=== PATIENT | female | born 1970 | race Caucasian/White ===

== ENCOUNTER 2019-01-02 07:19 | Outpatient (CLI) | payer MEDICARE, MEDICAID, SELFPAY ==
[2019-01-02 08:02] LABS: Kit/Specimen SENT
== END 2019-01-02 07:39 ==
PROVIDERS: PCP Family Medicine
DX: A67 Pinta [carate] (principal)
CPT/HCPCS: 36415

== ENCOUNTER 2019-03-15 14:20 | Outpatient (CLI) | payer MEDICARE, MEDICAID, SELFPAY ==
[2019-03-19 10:36] LABS: EBV EA IgG Positive (Negative)
[2019-03-19 15:06] LABS: EBNA IgG Positive (Negative); EBV Interpretation (See Note); VCA IgG Positive (Negative); VCA IgM Negative (Negative)
== END 2019-03-15 14:40 ==
PROVIDERS: PCP Family Medicine
DX: R53.83 Other fatigue (principal); A69.20 Lyme disease, unspecified; A44.9 Bartonellosis, unspecified
CPT/HCPCS: 36415; 86663; 86664; 86665

== ENCOUNTER 2022-09-13 23:29 | Emergency (ER) | payer MEDICARE, MEDICAID, SELFPAY ==
[2022-09-13 23:33] VITALS: BP 147/70; PULSE 96; RESP 20; TEMP 36.7; O2SAT 98
--- NOTE | 2022-09-13 23:35 | ED.GENADUL_ITS ---
Discharge Plan Discharge Details Chief Complaint: [facility]Medical Primary Care Provider: Marcelo Metz ED Provider: Marcelo Gannon Home Meds and New Rx's Prescriptions: No Action lorazepam [Ativan] 1 mg tablet 1 mg PO DAILY PRN cyclobenzaprine 10 mg tablet 10 mg PO DAILY PRN lithium oratate 2 mg PO .3x a week albuterol sulfate [ProAir HFA] 90 mcg/actuation HFA aerosol inhaler 2 puff inhalation QID trazodone 150 mg tablet 150 mg PO QHS PRN olanzapine [Zyprexa] 10 mg tablet 10 mg PO QHS Medical Decision Making This is an overall very well-appearing normothermic and not tachycardic 52-year-old female with twitching and restless legs concerning for multiple etiologies. I considered dystonic reaction however the patient has no escalating doses of her home fluoxetine. Has had no torticollar reaction nor any buccolingual reactions. There is no oculogyric crisis on exam nor any opisthotonic nor any trismus. Her presentation is not consistent with Sydenham's chorea and she had no recent fevers. She had no led pipe rigidity nor any altered mental status to suggest neuroleptic malignant syndrome. She was not altered nor has she had any autonomic instability to suggest serotonin syndrome. It is certainly possible that she she may progress to develop serotonin syndrome and so I advised discontinuing her home fluoxetine. No recent infected wounds to suggest tetanus. 5 out of 5 bilateral upper and lower extremity strength so not suspicious for CVA. Patient had no history of dementia.Patient denies any visual changes so my suspicion was exceedingly low for new onset MS particularly given the patient's age. She reported that she did take olanzapine today so it is certainly possible that she could have had an extrapyramidal reaction such as akathisia. She has no history of IV drug use to suggest spinal epidural abscess. No recent spinal manipulation to suggest increased risk for spinal epidural hematoma. No acute urinary retention to suggest cauda equina. Bilateral lower extremities warm and well-perfused and no history of peripheral vascular disease so I am not concerned for critical limb ischemia and I did not feel that the patient required a CT angiogram with runoffs. No pain out of proportion to suggest necrotizing soft tissue infection. I advised her to stop taking olanzapine though this is an atypical antipsychotic and less likely to provoke extrapyramidal side effects. I offered her treatment in the ED with diphenhydramine and lorazepam. She declined. As we began discussing treatment options patient was concerned that she could be low on iron. She had had no black nor bloody stools and she is not anticoagulated. Given that she was not pale nor tachycardic my suspicion for acute blood loss anemia was exceedingly low. Patient quickly became frustrated. She said so you are not going to check anything. I offered to check a CBC but I told her that I did not feel that this would change agent. She declined. I considered whether or not to check a basic metabolic panel however the patient has not been vomiting so my suspicion for acute electrolyte abnormalities is exceedingly low. As I was sitting and discussing options patient abruptly grabbed her purse and walked out of the room. I was planning on attempting symptomatic treatment with lorazepam and monitor the patient in the ED to ensure that she did not progress to develop serotonin syndrome. During her entire ED course I did not witness any uncontrolled or jolting motions as she had described. It is certainly possible that the patient may benefit from trial of pramipexole however I will defer this decision to her primary care provider as I do not know her renal function and I do not want to cause an adverse reaction such as hypotension syncope nor extrapyramidal symptoms. I reviewed her [facility] EMR from the patient's visit earlier today in which she left without being seen. At this index visit, she was also normothermic and not tachycardic nor hypotensive. She was saturating 100% on room air. The triage note from [facility] noted that she walks with a steady gait and she reported she had not slept for 18 days secondary to tremors and my legs that go up into my hips, back and neck. Chart review at [facility] indicates that patient has a history of fibromyalgia, bipolar affective disorder, anxiety, obesity, and PTSD. Patient reports that she is being reassigned to a new primary care provider at [facility]. HPI General Date/Time Provider Initiated Documentation: 09/13/22 23:34 . HPI Narrative: This is a 52-year-old female with fibromyalgia bipolar disorder and anxiety arriving to the emergency department in the setting of difficulty sleeping secondary to uncontrolled jerking in her bilateral lower extremities. Patient reports that she takes duloxetine and has been on this for 1-1/2 years. She says that on August 24 of this year she began to notice an electric shock sensation in her back. This only occurred when lying flat and at night. This sensation causes her to have twitching in her legs. These symptoms did not occur while awake. She saw a homeopathic provider in [place]. She attempted treatment today with 10 mg of olanzapine some hydroxychloroquine, and diphenhydramine. She is between primary care providers at [facility]. She denies history of multiple sclerosis. No recent fevers nausea vomiting chest pain nor shortness of breath. She denies urinary retention. She denies weakness. She has had no history of any recent falls. Related Data Home Medications Medication Instructions Recorded Confirmed albuterol sulfate 90 mcg/actuation 2 puff inhalation QID 05/28/21 09/13/22 aerosol inhaler (ProAir HFA) cyclobenzaprine 10 mg tablet 10 mg PO DAILY PRN 05/28/21 09/13/22 lithium oratate 2 mg PO .3x a week 05/28/21 lorazepam 1 mg tablet (Ativan) 1 mg PO DAILY PRN 05/28/21 09/13/22 olanzapine 10 mg tablet (Zyprexa) 10 mg PO QHS 05/28/21 09/13/22 trazodone 150 mg tablet 150 mg PO QHS PRN 05/28/21 09/13/22 Allergies Allergy/AdvReac Type Severity Reaction Status Date / Time No Known Drug Allergies Allergy Unverified 07/13/16 10:42 haloperidol [From Haldol] AdvReac Unknown Irojocular Verified 05/28/21 08:13 crisis lurasidone [From Latuda] AdvReac Unknown stiff neck Verified 05/28/21 08:12 PFSH All Active Problems (Updated 05/28/21 @ 08:32 by Ashly Thompson) Allergies (Acute) Depression (Chronic) Medical History (Updated 05/28/21 @ 08:32 by Ashly Thompson) Mononucleosis Family History (Updated 05/28/21 @ 08:38 by Ashly Thompson) Mother History of heart attack Father History of heart attack Thyroid disease Schizophrenia Brother History of heart attack with triple bipass age 53 History of mononucleosis Social History Smoking risk assessment performed?: No Exam Narrative Exam Narrative: General: Well-appearing in no acute distress speaking in complete sentences. Head: Normocephalic, atraumatic. Eye: Pupils equal, round reactive to light. Extraocular eye movements intact. No conjunctival injection. No scleral icterus. Ear, nose, mouth, throat: Grossly normal inspection. Normal voice, handling secretions normally. Neck: Trachea midline. Cardiovascular: Well-perfused distal extremities. Respiratory: Nonlabored respiration. Gastrointestinal: Nondistended abdomen. Musculoskeletal: No edema. Moving all 4 extremities spontaneously. 5 out of 5 bilateral upper and lower extremity strength. No lower extremity clonus. Bilateral lower extremities warm and well-perfused with 5 out of 5 strength in dorsi and plantarflexion. Difficult to elicit patellar reflexes bilaterally. Skin: Normal for age and race, grossly normal temperature and turgor. No acute rash. Neurologic: Alert and appropriate, no apparent acute deficits. Psychiatric: Mood and manner are appropriate. Grooming and personal hygiene are appropriate.
== END 2022-09-14 00:11 | disposition home or self-care (01) ==
PROVIDERS: Emergency Provider Emergency Medicine; PCP Family Medicine
DX: M79.7 Fibromyalgia (principal); F31.9 Bipolar disorder, unspecified; F41.9 Anxiety disorder, unspecified; G47.00 Insomnia, unspecified
CPT/HCPCS: 99281; 99282